=== PATIENT | female | born 1990 | race Caucasian/White ===

== ENCOUNTER 2019-09-18 09:18 | Emergency (ER) | payer OTHER | END 2019-09-18 09:33 | disposition home or self-care (01) | LOC: BURERS 09:18 | DX: R09.81 Nasal congestion (principal); L85.3 Xerosis cutis; E66.01 Morbid (severe) obesity due to excess calories; F41.9 Anxiety disorder, unspecified; F31.9 Bipolar disorder, unspecified; F90.9 Attention-deficit hyperactivity disorder, unspecified type; Z79.899 Other long term (current) drug therapy | CPT/HCPCS: 99281 ==